=== PATIENT | female | born 1970 | race Caucasian/White ===

== ENCOUNTER 2019-10-17 10:48 | Emergency (ER) | payer BC, SELFPAY ==
[2019-10-17] VITALS (12 sets, daily range): BP systolic 120–150; BP diastolic 68–80; PULSE 68–82; RESP 13–20; TEMP 36.8; O2SAT 96–100
--- NOTE | ~2019-10-17 | XR_ITS ---
EXAMINATION: XR chest 2V 10/17/2019 13:03 INDICATION: Shortness of breath and cough PROCEDURE: 2 view chest COMPARISON: No prior studies for comparison. FINDINGS: The lungs are clear. The cardiomediastinal silhouette is within normal limits. There are no pleural effusions. There is no pneumothorax suspected. IMPRESSION: 1: NO ACUTE CARDIOPULMONARY DISEASE. Reviewed, dictated and finalized at location B.
--- NOTE | 2019-10-17 12:22 | ECG_ITS ---
Measurements Intervals [place] Rate: 74 P: 59 [place]: 169 QRS: 37 QRSD: 76 T: 37 QT: 379 QTc: 421 Interpretive Statements SINUS RHYTHM BASELINE ARTIFACT- I, II NORMAL ECG Electronically Signed On 10-17-2019 12:25:44 CDT by Prieto Rodrigues D.O.
--- NOTE | 2019-10-17 12:34 | PC.NURSE ---
called lab to add on orders at this time.
[2019-10-17 12:37] LABS: Basophils Absolute Auto 0.1 K/mm3 (0.0-0.1); Basophils Percent Auto 0.5 % (0.2-1.2); Eosinophils Absolute Auto 0.1 K/mm3 (0-0.3); Eosinophils Percent Auto 1.1 % (0-4.4); Hematocrit 44.9 % (37.0-47.0); Hemoglobin 14.8 g/dL (12.0-15.0); Immature Granulocyte Absolute 0.03 K/mm3 (0.00-0.031); Immature Granulocyte Percent A 0.3 % (0-0.5); Lymphocytes Absolute Auto 3.54 K/mm3 (0.9-3.2); Lymphocytes Percent Auto 34.8 % (18.3-44.2); Mean Corpuscular Hemoglobin 28.1 pg (26-34); Mean Corpuscular Volume 85.4 fl (80-100); Mean Platelet Volume 9.4 fl (7.4-10.4); Monocytes Absolute Auto 0.5 K/mm3 (0.1-0.6); Monocytes Percent Auto 4.7 % (2.6-8.5); Neutrophils Percent Auto 58.6 % (45.5-73.1); Platelet Count Result 283 k/mm3 (150-375); Red Blood Count 5.26 M/mm3 (4.2-5.4); Red Cell Distribution Width 14.5 % (11.5-14.5); White Blood Count 10.2 K/mm3 (4.5-10.0)
[2019-10-17 12:47] LABS: INR 0.9; Partial Thromboplastin Time 28.7 SECONDS (22.3-36.8); Prothrombin Time 11.9 Seconds (11.1-14.7)
[2019-10-17 12:58] LABS: Blood Urea Nitrogen 19 mg/dL (7-17); Calcium 9.2 mg/dL (8.4-10.2); Carbon Dioxide 25 mmol/L (22-30); Chloride 104 mmol/L (98-107); Estimated CRCL calculation 102 ml/min; Estimated Glomerular Filt Rate > 60; Glucose 94 mg/dL (65-105); Sodium 134 mmol/L (137-145)
[2019-10-17 13:06] LABS: Troponin I < 0.012 ng/mL (0.000-0.034)
[2019-10-17] MEDS: ALBUTEROL SULFATE NEB 2.5 MG/0.5 ML INH 5 MG INHALATION (13:19)
[2019-10-17] MEDS: IPRATROPIUM BR 0.02% INH SOLN 0.5 MG/2.5 ML VIAL INHALATION (13:19)
[2019-10-17 13:36] LABS: Alveolar/Arterial O2 Gradient 15.6 mmHg; Base Excess ABG -2.2 mEq/l (+/-2.0); Carboxyhemoglobin 1.6 % THb (0-2.0); Fractional Inspired Oxygen 21 %; HCO3 ABG 22.1 mEq/l (22.0-26.0); Methemoglobin ABG 0.4 %THb (0-1.5); Oxygen Content ABG 19.8 %vol (16.0-22.0); Oxygen Saturation ABG 96.9 % (95.0-100.0); Oxyhemoglobin 95.1 % THb (90.0-100.0); PCO2 ABG 36.6 mmHg (35.0-45.0); PO2 ABG 90.3 mmHg (80.0-100.0); Reduced Hemoglobin 2.9 %THb (0-5.0); Total Hemoglobin 14.8 g/dL (12.0-18.0); pH ABG 7.399 (7.350-7.450)
[2019-10-17 13:38] LABS: Device ROOM AIR; Site Drawn RIGHT BRACHIAL
[2019-10-17] MEDS: methylPREDNISolone SOD SUCC 125 MG VIAL IV PUSH (14:03)
--- NOTE | 2019-10-17 14:13 | ED.SOB ---
HPI - SOB/Dyspnea General Chief Complaint: Shortness of Breath/Dyspnea Stated Complaint: SOB Time Seen by Provider: 10/17/19 12:22 Source: patient Mode of arrival: ambulatory Limitations: no limitations History of Present Illness HPI Narrative: This is a 49-year-old female that presents the emergency department for shortness of breath x3 days. Also reports cough. Reports chest pressure. Denies fever, congestion, or sore throat. Related Data Home Medications Medication Instructions Recorded Confirmed albuterol sulfate 2 puff INHALATION QID 10/17/19 10/17/19 alprazolam 1 mg PO BID 10/17/19 10/17/19 budesonide-formoterol [Symbicort] INHALATION 10/17/19 cyclobenzaprine 10 mg PO HS 10/17/19 10/17/19 dextroamphetamine-amphetamine 20 mg PO BID 10/17/19 10/17/19 sertraline 100 mg PO DAILY 10/17/19 10/17/19 Allergies Allergy/AdvReac Type Severity Reaction Status Date / Time adhesive Allergy Rash Verified 10/17/19 12:30 Review of Systems Review of Systems: Narrative: CONSTITUTIONAL: Denies fever, chills ENT: Denies rhinorrhea, congestion, sore throat CARDIOVASCULAR: Reports chest pain RESPIRATORY: Reports cough and dyspnea. All systems reviewed & are unremarkable except as noted in HPI and below PMFSH Past Medical History Medical History (Updated 10/17/19 @ 16:25 by Tiff Sherman PA-C) History of anxiety History of COPD Social History Social History Gender identity (if verbalized by the patient): Female Exam Narrative: Exam Narrative: GENERAL: Well-appearing, well-nourished, and in no acute distress. HEAD: Normocephalic, atraumatic. EYES: EOMI. ENT: Nares clear, no rhinorrhea or epistaxis. Mucous membranes moist. Oropharynx without tonsillar hypertrophy exudate or other lesions. Bilateral TMs pearly sky non-bulging NECK: Supple. No adenopathy or masses. CHEST: No respiratory distress. Mild scattered wheezes. No rales or rhonchi HEART: Regular rate and rhythm. No murmur heard. Normal peripheral pulses. EXTREMITIES: Normal range of motion. No edema. SKIN: Warm, dry, no rash. NEURO: No focal deficits. Alert and oriented x3. PSYCH: Normal mood and affect Course Vital Signs Vital signs: Vital Signs Temperature 98.3 F 10/17/19 11:23 Pulse Rate 81 10/17/19 11:23 Respiratory Rate 16 10/17/19 11:23 Blood Pressure 124/68 10/17/19 11:23 Pulse Oximetry 100 10/17/19 11:23 Temperature 98.3 F 10/17/19 11:23 Pulse Rate 73 10/17/19 14:03 Respiratory Rate 14 10/17/19 14:03 Blood Pressure 124/73 10/17/19 14:03 Pulse Oximetry 96 10/17/19 14:11 MDM - SOB/Dyspnea MDM Narrative Medical decision making narrative: Patient presents the emergency department for cold symptoms x3 days. She is afebrile and nontoxic-appearing. Vitals are normal. CBC without acute findings. Metabolic panel without concerning changes. Baseline and 3-hour troponin negative. EKG without concerning changes. Chest x-ray was without acute findings. ABG is normal. SARS-CoV-2 sent. Patient given nebulizer treatment and steroid with improvement. Patient is stable and felt appropriate further outpatient evaluation. She was given warnings to return to the ER Lab Data Attestation: I reviewed the patient's lab results. Result diagrams: 10/17/19 12:25 10/17/19 12:29 Labs: Lab Results 10/17/19 10/17/19 10/17/19 Range/Units 12:25 12:26 12:26 WBC 10.2 H (4.5-10.0) K/mm3 RBC 5.26 (4.2-5.4) M/mm3 Hgb 14.8 (12.0-15.0) g/dL Hct 44.9 (37.0-47.0) % MCV 85.4 (80-100) fl MCH 28.1 (26-34) pg MCHC 33.0 (32-36) g/dl RDW 14.5 (11.5-14.5) % Plt Count 283 (150-375) k/mm3 MPV 9.4 (7.4-10.4) fl Immature Gran % (Auto) 0.3 (0-0.5) % Neut % (Auto) 58.6 (45.5-73.1) % Lymph % (Auto) 34.8 (18.3-44.2) % [place] % (Auto) 4.7 (2.6-8.5) % Eos % (Auto) 1.1 (0-4.4) % Baso % (Auto) 0.5 (0.2-1.2) % Lymph # (Auto) 3.54 H
[2019-10-17 16:11] LABS: Troponin I < 0.012 ng/mL (0.000-0.034)
[2019-10-17 22:45] LABS: SARS-CoV-2 RNA PCR Negative
== END 2019-10-17 17:27 | disposition home or self-care (01) ==
PROVIDERS: Physician Assistant; Emergency Provider Emergency Medicine; PCP Family Medicine
DX: Z20.828 Contact with and (suspected) exposure to other viral communicable diseases (principal); B34.9 Viral infection, unspecified; J44.1 Chronic obstructive pulmonary disease with (acute) exacerbation
CPT/HCPCS: 36415; 36600; 71046; 80048; 82375; 82805; 83050; 84484; 85025; 85610; 85730; 87635; 93005; 94640; 96374; 99284; C9803; J2930; U0003

== ENCOUNTER 2020-08-08 03:58 | Emergency (ER) | payer OTHER, SELFPAY ==
--- NOTE | ~2020-08-08 | XR_ITS ---
EXAMINATION: XR elbow LT min 3V DATE: 08/08/2020 05:54 INDICATION: Left elbow pain, cat bite TECHNIQUE: Anteroposterior, two oblique and lateral views of the left elbow were obtained. COMPARISON: None. FINDINGS: Alignment is normal. No fracture or joint effusion. Joint spaces are normal. Soft tissues a re unremarkable. IMPRESSION: 1. No acute findings. Reviewed, dictated and finalized at location A. IMPRESSION: 1. No acute findings.
--- NOTE | ~2020-08-08 | XR_ITS ---
EXAMINATION: XR wrist LT min 3V DATE: 08/08/2020 05:55 INDICATION: Left wrist pain, can't by TECHNIQUE: Posteroanterior, ulnar deviation, oblique, and lateral views of the left wrist were obtain ed. COMPARISON: None available FINDINGS: There is ventral soft tissue swelling. Bone alignment is normal. There is no fracture. IMPRESSION: 1. Soft tissue swelling without acute osseous abnormality Reviewed, dictated and finalized at location A.
[2020-08-08 04:03] VITALS: BP 152/85; PULSE 95; RESP 18; TEMP 36.5; O2SAT 100
[2020-08-08 05:41] LABS: Basophils Absolute Auto 0.1 K/mm3 (0.0-0.1); Basophils Percent Auto 0.5 % (0.2-1.2); Eosinophils Absolute Auto 0.1 K/mm3 (0-0.3); Eosinophils Percent Auto 1.3 % (0-4.4); Hematocrit 42.2 % (37.0-47.0); Hemoglobin 13.9 g/dL (12.0-15.0); Immature Granulocyte Absolute 0.04 K/mm3 (0.00-0.031); Immature Granulocyte Percent A 0.4 % (0-0.5); Lymphocytes Absolute Auto 3.62 K/mm3 (0.9-3.2); Lymphocytes Percent Auto 39.2 % (18.3-44.2); Mean Corpuscular HGB Conc 32.9 g/dl (32-36); Mean Corpuscular Hemoglobin 28.1 pg (26-34); Mean Corpuscular Volume 85.4 fl (80-100); Monocytes Absolute Auto 0.9 K/mm3 (0.1-0.6); Monocytes Percent Auto 9.4 % (2.6-8.5); Neutrophils Absolute Auto 4.5 K/mm3 (1.3-6.7); Neutrophils Percent Auto 49.2 % (45.5-73.1); Platelet Count Result 304 k/mm3 (150-375); Red Blood Count 4.94 M/mm3 (4.2-5.4); Red Cell Distribution Width 14.4 % (11.5-14.5); White Blood Count 9.2 K/mm3 (4.5-10.0)
[2020-08-08] MEDS: AMPICILLIN SULB 3 GM/NS 100 ML 3 GM/100 ML VIAL IVPB (05:41)
[2020-08-08 05:53] LABS: Alanine Aminotransferase 22 U/L (4-35); Albumin Level 4.5 g/dL (3.5-5.1); Alkaline Phosphatase 72 U/L (38-126); Anion Gap 6 mmol/L (8-16); Aspartate Amino Transferase 38 U/L (14-36); Bilirubin,Total 1.2 mg/dL (0.2-1.3); Blood Urea Nitrogen 27 mg/dL (7-17); Calcium 9.9 mg/dL (8.4-10.2); Carbon Dioxide 27 mmol/L (22-30); Chloride 101 mmol/L (98-107); Estimated CRCL calculation 70 ml/min; Estimated Glomerular Filt Rate > 60; Glucose 102 mg/dL (65-105); Potassium 3.4 mmol/L (3.4-5.0); Sodium 134 mmol/L (137-145)
--- NOTE | 2020-08-08 05:56 | ED.GENADULT ---
HPI - General Adult General Chief complaint: Animal Bite Stated complaint: Cat scratch, bite Time Seen by Provider: 08/08/20 04:49 History of Present Illness HPI narrative: Patient a 49-year-old female who presents the emergency department with chief complaint of cat bite. Patient reports she was trying to rescue a stray cat and reports that the cat proceeded to bite her on the upper extremity closer to the elbow and also closer to the wrist. Patient states happened approximately 5 PM reports that there is been little bit of swelling reports that it hurts whenever she moves her upper extremity. Patient denies fever denies chills denies red streaking up her arm. Related Data Home Medications Medication Instructions Recorded Confirmed albuterol sulfate 2 puff INHALATION QID 10/17/19 10/17/19 alprazolam 1 mg PO BID 10/17/19 10/17/19 budesonide-formoterol [Symbicort] INHALATION 10/17/19 cyclobenzaprine 10 mg PO HS 10/17/19 10/17/19 dextroamphetamine-amphetamine 20 mg PO BID 10/17/19 10/17/19 sertraline 100 mg PO DAILY 10/17/19 10/17/19 Allergies Allergy/AdvReac Type Severity Reaction Status Date / Time adhesive Allergy Rash Verified 10/17/19 12:30 Review of Systems Review of Systems: Narrative: A 10 system review of systems was completed on the patient and is negative except for what is stated in the HPI. Nursing and ancillary documentation was reviewed. [facility] Past Medical History Medical History History of anxiety History of COPD Social History Social History Gender identity (if verbalized by the patient): Female Exam Narrative: Exam Narrative: GENERAL: Well-appearing, well-nourished, and in no acute distress. HEAD: Normocephalic, atraumatic. EYES: PERRLA and EOMI. ENT: Nares clear, no rhinorrhea or epistaxis. Mucous membranes moist. NECK: Supple. CHEST: Clear to auscultation. No respiratory distress. HEART: Regular rate and rhythm. No murmur heard. Normal peripheral pulses. ABDOMEN: Soft, nontender, nondistended, normal active bowel sounds. EXTREMITIES: Normal range of motion. No edema. 2 small puncture wounds present distal to the left elbow. There is also several scratch spangler in the distal forearm. There is no red streaking SKIN: Warm, dry, no rash. NEURO: No focal deficits. Alert and oriented x3. PSYCH: Normal mood and affect. Course Vital Signs Vital signs: Vital Signs Temperature 36.5 C 08/08/20 04:03 Pulse Rate 95 08/08/20 04:03 Respiratory Rate 18 08/08/20 04:03 Blood Pressure 152/85 H 08/08/20 04:03 Pulse Oximetry 100 08/08/20 04:03 Temperature 36.5 C 08/08/20 04:03 Pulse Rate 95 08/08/20 04:03 Respiratory Rate 18 08/08/20 04:03 Blood Pressure 152/85 H 08/08/20 04:03 Pulse Oximetry 100 08/08/20 04:03 Medical Decision Making Vital Signs Vital Signs: Vital Signs Temperature 36.5 C 08/08/20 04:03 Pulse Rate 95 08/08/20 04:03 Respiratory Rate 18 08/08/20 04:03 Blood Pressure 152/85 H 08/08/20 04:03 Pulse Oximetry 100 08/08/20 04:03 Temperature 36.5 C 08/08/20 04:03 Pulse Rate 95 08/08/20 04:03 Respiratory Rate 18 08/08/20 04:03 Blood Pressure 152/85 H 08/08/20 04:03 Pulse Oximetry 100 08/08/20 04:03 Lab Data Result diagrams: 08/08/20 05:36 08/08/20 05:36 Labs: Lab Results 08/08/20 08/08/20 Range/Units 05:36 05:36 WBC 9.2 (4.5-10.0) K/mm3 RBC 4.94 (4.2-5.4) M/mm3 Hgb 13.9 (12.0-15.0) g/dL Hct 42.2 (37.0-47.0) % MCV 85.4 (80-100) fl MCH 28.1 (26-34) pg MCHC 32.9 (32-36) g/dl RDW 14.4 (11.5-14.5) % Plt Count 304 (150-375) k/mm3 MPV 9.0 (7.4-10.4) fl Immature Gran % (Auto) 0.4 (0-0.5) % Neut % (Auto) 49.2 (45.5-73.1) % Lymph % (Auto) 39.2 (18.3-44.2) % [place] % (Auto) 9.4 H (2.6-8.5) % Eos
[2020-08-08] MEDS: TETANUS,DIPHTHERIA,AC PERTUSSIS ADULT (0.5 ML) BOOSTRIX IM (06:08)
[2020-08-08 06:35] VITALS: BP 127/92; PULSE 85; RESP 18; O2SAT 100
== END 2020-08-08 06:35 | disposition home or self-care (01) ==
PROVIDERS: Emergency Provider Emergency Medicine; PCP Family Medicine
DX: S51.852A Open bite of left forearm, initial encounter (principal); Z23 Encounter for immunization; F41.9 Anxiety disorder, unspecified; J44.9 Chronic obstructive pulmonary disease, unspecified; W55.01XA Bitten by cat, initial encounter
CPT/HCPCS: 36415; 73080; 73110; 80053; 85025; 90471; 90715; 96365; 99284; J0295

== ENCOUNTER 2020-08-13 00:23 | Emergency (ER) | payer OTHER, SELFPAY ==
--- NOTE | ~2020-08-13 | XR_ITS ---
EXAMINATION: XR ankle LT min 3V DATE: 08/13/2020 00:55 INDICATION: Lateral left ankle pain and swelling post injury 2 days prior TECHNIQUE: Anteroposterior, oblique, mortise, and lateral views of the left ankle were obtained. COMPARISON: None. FINDINGS: Alignment is normal. No fracture. Small heterotopic ossicles near the tips of the medial and lateral malleoli likely sequela of chronic ankle sprains. Tiny Achilles and plantar calcaneal spurs. No left ankle joint effusion. Prominent soft tissue swelling about the lateral malleolus. IMPRESSION: 1. Small heterotopic ossicles at the medial and lateral malleolus likely sequela of chronic ankle spr ains. No acute osseous abnormality. Reviewed, dictated and finalized at location A. IMPRESSION: 1. Small heterotopic ossicles at the medial and lateral malleolus likely sequel a of chronic ankle sprains. No acute osseous abnormality.
[2020-08-13 00:32] VITALS: BP 134/77; PULSE 95; RESP 18; TEMP 36.4; O2SAT 100
--- NOTE | 2020-08-13 01:00 | ED.LOWEXIN ---
HPI - Extremity Injury (Lower) General Chief Complaint: Extremity Injury, Lower Stated Complaint: ankle pain Time Seen by Provider: 08/13/20 00:29 Source: patient and family Mode of arrival: ambulatory Limitations: no limitations History of Present Illness HPI Narrative: 49-year-old with a history of COPD, anxiety here with the complaints of left ankle pain and swelling. Patient states that she rolled her ankle 2 days ago still having significant pain and swelling. She states that she is unable to ambulate. complaint: ankle injury Injury: Left: ankle Type of Injury: inversion Place: home Severity: moderate Relieving factors: nothing Exacerbating factors: nothing Related Data Home Medications Medication Instructions Recorded Confirmed albuterol sulfate 2 puff INHALATION QID 10/17/19 10/17/19 alprazolam 1 mg PO BID 10/17/19 10/17/19 budesonide-formoterol [Symbicort] INHALATION 10/17/19 cyclobenzaprine 10 mg PO HS 10/17/19 10/17/19 dextroamphetamine-amphetamine 20 mg PO BID 10/17/19 10/17/19 sertraline 100 mg PO DAILY 10/17/19 10/17/19 Allergies Allergy/AdvReac Type Severity Reaction Status Date / Time adhesive Allergy Rash Verified 10/17/19 12:30 Review of Systems Review of Systems: All systems reviewed & are unremarkable except as noted in HPI and below Constitutional: Constitutional: Reports no additional constitutional complaints Eyes: Eyes: Reports no additional eye complaints ENT: Reports system reviewed and no additional complaints, except as documented Cardiovascular: Cardiovascular: Reports no additional cardiovascular complaints Respiratory: Respiratory: Reports no additional respiratory complaints Gastrointestinal: Gastrointestinal: Reports no additional gastrointestinal complaints Musculoskeletal: Musculoskeletal: Reports as per HPI PMFSH Past Medical History Medical History History of anxiety History of COPD Social History Social History Gender identity (if verbalized by the patient): Female Exam Narrative: Exam Narrative: GENERAL: Well-appearing, well-nourished, and in no acute distress. HEAD: Normocephalic, atraumatic. EYES: PERRLA and EOMI. NECK: Supple. CHEST: Clear to auscultation. No respiratory distress. HEART: Regular rate and rhythm. No murmur heard. Normal peripheral pulses. EXTREMITIES: Normal range of motion. Left ankle moderate STS on the lateral aspect of the ankle. SKIN: Warm, dry, no rash. NEURO: No focal deficits. Alert and oriented x3. PSYCH: Normal mood and affect. Course Course Emergency Course: informed pt about her Xray findings , advised her to use Crutches to ambulate,follow with Ortho Vital Signs Vital signs: Vital Signs Temperature 36.4 C 08/13/20 00:32 Pulse Rate 95 08/13/20 00:32 Respiratory Rate 18 08/13/20 00:32 Blood Pressure 134/77 08/13/20 00:32 Pulse Oximetry 100 08/13/20 00:32 Temperature 36.4 C 08/13/20 00:32 Pulse Rate 95 08/13/20 00:32 Respiratory Rate 18 08/13/20 00:32 Blood Pressure 134/77 08/13/20 00:32 Pulse Oximetry 100 08/13/20 00:32 Discharge Plan Discharge Clinical Impression: Avulsion fracture of anterior fibula Patient Disposition: Home, Self-Care Condition: Stable Instructions: Antibiotic Form Additional Instructions: use crutches to ambulate , follow with Orthopedics doctor inthe next few days. Prescriptions: New tramadol [Ultram] 50 mg tablet 50 mg PO Q6H PRN (Reason: pain) Qty: 20 RF: 0 No Action cyclobenzaprine 10 mg Tablet 10 mg PO HS RF: 0 alprazolam 1 mg Tablet 1 mg PO BID RF: 0 sertraline 100 mg Tablet 100 mg PO DAILY RF: 0 dextroamphetamine-amphetamine 20 mg Tablet 20 mg PO BID RF: 0 albuterol sulfate 90 mcg/actuation Hfa Aerosol Inhaler 2 puff INHALATION QID RF: 0 budesonide-formoterol [Symbicort] 160-4
--- NOTE | 2020-08-13 02:04 | PC.NURSE ---
Pt refused crutches - reports has pair at home. to wr in [place] with friend.
[2020-08-13 02:05] VITALS: PULSE 65; RESP 16; O2SAT 98
== END 2020-08-13 02:08 | disposition home or self-care (01) ==
LOC: ANHED 01:13
PROVIDERS: Emergency Provider Family Medicine; PCP Family Medicine
DX: S82.499A Other fracture of shaft of unspecified fibula, initial encounter for closed fracture (principal); X50.0XXA Overexertion from strenuous movement or load, initial encounter
CPT/HCPCS: 73610; 99283

== ENCOUNTER → 2020-12-25 00:36 | Outpatient (CLI) | payer OTHER, SELFPAY ==
[2020-12-25 16:56] LABS: SARS-CoV-2 RNA PCR Negative
== END ==
PROVIDERS: PCP Family Medicine; Visit Provider Family Medicine
DX: R68.89 Other general symptoms and signs (principal); Z20.822 Contact with and (suspected) exposure to COVID-19
CPT/HCPCS: C9803; U0003; U0005

== ENCOUNTER 2021-03-19 08:42 | Emergency (ER) | payer OTHER, SELFPAY ==
[2021-03-19 08:47] VITALS: BP 129/82; PULSE 79; RESP 16; TEMP 36.3; O2SAT 100
[2021-03-19 10:38] VITALS: BP 105/65; PULSE 72; O2SAT 100
[2021-03-19] MEDS: KETOROLAC 30 MG/ML VIAL (*BKC) IV PUSH (12:01)
[2021-03-19] MEDS: diazePAM INJ (*CRX) 10 MG/2 ML SYRINGE 5 MG IV PUSH (12:01)
[2021-03-19 12:02] LABS: Basophils Absolute Auto 0.1 K/mm3 (0.0-0.1); Basophils Percent Auto 0.6 % (0.2-1.2); Eosinophils Absolute Auto 0.3 K/mm3 (0-0.3); Eosinophils Percent Auto 4.1 % (0-4.4); Hematocrit 42.8 % (37.0-47.0); Hemoglobin 13.6 g/dL (12.0-15.0); Immature Granulocyte Absolute 0.03 K/mm3 (0.00-0.031); Immature Granulocyte Percent A 0.4 % (0-0.5); Lymphocytes Absolute Auto 3.62 K/mm3 (0.9-3.2); Lymphocytes Percent Auto 44.6 % (18.3-44.2); Mean Corpuscular HGB Conc 31.8 g/dl (32-36); Mean Corpuscular Hemoglobin 28.2 pg (26-34); Mean Corpuscular Volume 88.6 fl (80-100); Mean Platelet Volume 9.2 fl (7.4-10.4); Monocytes Absolute Auto 0.6 K/mm3 (0.1-0.6); Monocytes Percent Auto 6.9 % (2.6-8.5); Neutrophils Absolute Auto 3.5 K/mm3 (1.3-6.7); Neutrophils Percent Auto 43.4 % (45.5-73.1); Platelet Count Result 288 k/mm3 (150-375); Red Blood Count 4.83 M/mm3 (4.2-5.4); Red Cell Distribution Width 14.5 % (11.5-14.5); White Blood Count 8.1 K/mm3 (4.5-10.0)
[2021-03-19 12:22] LABS: Alanine Aminotransferase 20 U/L (4-35); Albumin Level 4.2 g/dL (3.5-5.1); Alkaline Phosphatase 63 U/L (38-126); Anion Gap 10 mmol/L (8-16); Aspartate Amino Transferase 26 U/L (14-36); Bilirubin,Total 0.5 mg/dL (0.2-1.3); Blood Urea Nitrogen 19 mg/dL (7-17); Calcium 8.8 mg/dL (8.4-10.2); Carbon Dioxide 21 mmol/L (22-30); Chloride 106 mmol/L (98-107); Estimated CRCL calculation 93 ml/min; Estimated Glomerular Filt Rate > 60; Glucose 100 mg/dL (65-110); Magnesium 2.3 mg/dL (1.6-2.3); Potassium 3.9 mmol/L (3.4-5.0); Sodium 137 mmol/L (137-145)
--- NOTE | 2021-03-19 13:04 | ED.GENADULT ---
HPI - General Adult General Chief complaint: Unspecified Stated complaint: Pain all over Time Seen by Provider: 03/19/21 11:06 History of Present Illness HPI narrative: Patient is a 50-year-old female who presents ER with body aches. Reports pain in her shoulders/elbows and wrist. Reports tingling in her feet and her face. Worsening over the last day. Has taken Tylenol without relief. No fevers or chills or sweats. No known injury. Reports no medication changes. Movements exacerbate all of her pain. Related Data Home Medications Medication Instructions Recorded Confirmed alprazolam 03/19/21 budesonide-formoterol [Symbicort] INHALATION 03/19/21 cyclobenzaprine mg 03/19/21 dextroamphetamine-amphetamine 03/19/21 ibuprofen 03/19/21 Allergies Allergy/AdvReac Type Severity Reaction Status Date / Time adhesive Allergy Rash Verified 03/19/21 11:29 Review of Systems Review of Systems: All systems reviewed & are unremarkable except as noted in HPI and below Constitutional: Constitutional: Denies chills, Denies fever(s) and Denies weakness Cardiovascular: Cardiovascular: Denies chest pain with activity and Denies rapid heart rate Respiratory: Respiratory: Denies cough, Denies dyspnea and Denies wheezing Comments: No pain with deep breath. Gastrointestinal: Gastrointestinal: Denies abdominal pain, Denies nausea and Denies vomiting Musculoskeletal: Musculoskeletal: Reports back pain, Reports myalgias, Denies joint swelling, Denies limited range of motion, Reports muscle cramps, Denies neck pain, Denies numbness and Reports tingling Neurologic: Denies syncope, Denies lack of coordination, Denies focal weakness and Reports tingling Comments: Chronic expressive aphasia PMFSH Past Medical History Medical History (Updated 03/19/21 @ 13:14 by Morris Uribe MD) Expressive aphasia History of anxiety History of COPD Social History Social History Gender identity (if verbalized by the patient): Female Exam Narrative: GENERAL: Well-appearing, well-nourished, and in no acute distress. HEAD: Normocephalic, atraumatic. EYES: PERRL and EOMI. ENT: Mucous membranes moist. NECK: Supple. Tender palpation in the trapezius musculature bilaterally. CHEST: Clear to auscultation. No respiratory distress. HEART: Regular rate and rhythm. Normal peripheral pulses. EXTREMITIES: Pain with range of motion bilateral upper extremities at the shoulders and elbows. No deformity, normal pulses. Back: No reproducible midline tenderness of the C/T-spine. NEURO: No focal deficits. Cranial nerves II to XII intact. Sharp and soft touch intact in the face and arms. Alert and oriented x3. Course Course Emergency Course: Symptoms resolved with Toradol and Valium. Discharge home with anti-inflammatories muscle relaxers. Labs unremarkable. Vital Signs Vital signs: Vital Signs Temperature 97.3 F L 03/19/21 08:47 Pulse Rate 79 03/19/21 08:47 Respiratory Rate 16 03/19/21 08:47 Blood Pressure 129/82 03/19/21 08:47 Pulse Oximetry 100 03/19/21 08:47 Temperature 97.3 F L 03/19/21 08:47 Pulse Rate 72 03/19/21 10:38 Respiratory Rate 16 03/19/21 08:47 Blood Pressure 105/65 03/19/21 10:38 Pulse Oximetry 100 03/19/21 10:38 Medical Decision Making Vital Signs Vital Signs: Vital Signs Temperature 97.3 F L 03/19/21 08:47 Pulse Rate 79 03/19/21 08:47 Respiratory Rate 16 03/19/21 08:47 Blood Pressure 129/82 03/19/21 08:47 Pulse Oximetry 100 03/19/21 08:47 Temperature 97.3 F L 03/19/21 08:47 Pulse Rate 72 03/19/21 10:38 Respiratory Rate 16 03/19/21 08:47 Blood Pressure 105/65 03/19/21 10:38 Pulse Oximetry 100 03/19/21 10:38 Lab Data Result diagrams: 03/19/21 11:56 03/19/21 11:56 Labs: Lab Results 03/19/21 03/19/21 Range/Units 11:56 11:56 WBC 8.1 (4.5-10.0) K/mm3 RBC 4.83 (4.2-
== END 2021-03-19 13:28 | disposition home or self-care (01) ==
PROVIDERS: Emergency Provider Emergency Medicine; PCP Family Medicine
DX: R25.2 Cramp and spasm (principal); J44.9 Chronic obstructive pulmonary disease, unspecified; F41.9 Anxiety disorder, unspecified
CPT/HCPCS: 36415; 80053; 83735; 85025; 96374; 96375; 99284; J1885; J3360

== ENCOUNTER → 2021-04-16 02:15 | Outpatient (CLI) | payer OTHER, SELFPAY ==
[2021-04-17 01:23] LABS: SARS-CoV-2 RNA PCR Negative
== END ==
PROVIDERS: PCP Family Medicine; Visit Provider Family Medicine
DX: Z20.822 Contact with and (suspected) exposure to COVID-19 (principal)
CPT/HCPCS: C9803; U0003; U0005